=== PATIENT | male | born 1945 | race Caucasian/White ===

== ENCOUNTER 2022-07-11 07:56 | Day surgery (SDC) | payer OTHER ==
--- NOTE | 2022-07-06 10:58 | RAD REPORT ---
EXAM DESCRIPTION: RAD - Chest Pa And Lat (2 Views) - 07/06/2022 10:47 am CLINICAL HISTORY: Pre op pending bladder biopsy COMPARISON: CHEST PA AND LAT 2 VIEW dated 07/14/2008; Abdomen Pelvis W/Wo Contrast dated 06/09/2022 FINDINGS: Lines: None. Lungs: No evidence of edema or pneumonia. Large lung volumes and flattened hemidiaphragms could refle ct emphysema. Pleural: No significant pleural effusions or pneumothorax. Cardiac: Cardiomegaly. Bones: No acute fractures. Other: IMPRESSION: No acute cardiopulmonary disease.
[2022-07-06 11:12] LABS: Absolute Lymphocytes (CBC) 1.7 K/uL (0.7-4.9); Hematocrit 38.5 % (39.6-49.0); Lymphocytes % 18.7 % (15.3-44.8); MCV 84.1 fL (80-100); MPV 7.7 fL (7.6-11.3); RBC Red Blood Cell Count 4.58 M/uL (4.33-5.43)
[2022-07-06 11:13] LABS: Protime INR 1.05
[2022-07-06 11:23] LABS: Potassium 4.2 mmol/L (3.5-5.1)
[2022-07-06 12:34] LABS: SARS-CoV-2 Antigen Rapid Res Negative (Negative)
--- NOTE | 2022-07-06 14:27 | EKG ---
Test Date: 2022-07-06 Test Time: 10:30:33 [employer]: NABIL MEASUREMENT RESULTS: Intervals: Rate: 76 AK: 184 QRSD: 144 QT: 404 QTc: 454 [place]: P: 67 AK: 184 QRS: 95 T: 28 INTERPRETIVE STATEMENTS: Normal sinus rhythm Rightward axis Nonspecific intraventricular block Abnormal ECG No previous ECG available for comparison Electronically Signed On 07-06-22 14:26:55 CDT by Alonzo Douglass
[2022-07-11] MEDS ORDERED: Ringers Lactate 1,000 ML IV ONE (08:09)
[2022-07-11] MEDS ORDERED: CEFAZOLIN SODIUM 1 GM/VIAL ONE (08:10)
[2022-07-11] MEDS ORDERED: CEFAZOLIN 2 GM IN 0.9% NACL 2 GM/100 ML BAG ONE (08:20)
[2022-07-11] MEDS ORDERED: CEFAZOLIN SODIUM 1 GM/VIAL IVP ONE (10:58)
[2022-07-11] MEDS ORDERED: FENTANYL CITR 100 MCG/2 ML ONE ×2 (11:13→13:25)
[2022-07-11] MEDS ORDERED: LIDOCAINE 1% MPF 5 ML VIAL ONE (11:26)
[2022-07-11] MEDS ORDERED: propofoL 200 MG/20 ML VIAL IV ONE (11:26)
[2022-07-11] MEDS ORDERED: ROCURONIUM 50 MG/5 ML VIAL IV ONE (12:25)
[2022-07-11] MEDS ORDERED: HYDRALAZINE HCL 20 MG/ML VIAL ONE (12:26)
[2022-07-11] MEDS ORDERED: NEOSTIGMINE 1 MG/ML -10 ML VIAL ONE (12:43)
[2022-07-11] MEDS ORDERED: GLYCOPYRROLATE 0.2 MG/ML SYR ONE (12:43)
[2022-07-11] MEDS ORDERED: EPHEDRINE SULF 50 MG/ML VIAL ONE (12:47)
[2022-07-11] MEDS: HYDROMORPHONE HCL 1 MG/ML INJ ONE ×6 (13:07→13:42)
[2022-07-11] MEDS ORDERED: OPIUM/BELLADONNA SUPPOS (30-16.2 MG) PR ONE ×2 (13:08→13:17)
[2022-07-11] MEDS ORDERED: PHENAZOPYRIDINE 100MG TAB PO ONE (13:08)
[2022-07-11] MEDS ORDERED: CODEINE 30MG/APAP 300MG TAB PO PRN (13:09)
[2022-07-11] MEDS ORDERED: KETOROLAC 30 MG/ML INJ ONE (13:13)
[2022-07-11] MEDS ORDERED: FENTANYL CITR 250 MCG/5 ML ONE (13:50)
[2022-07-11] MEDS ORDERED: ONDANSETRON 4 MG/2 ML VIAL ONE (13:50)
[2022-07-11 15:59] VITALS: BP 165/95; TEMP 97
[2022-07-11 18:04] VITALS: O2SAT 98
--- NOTE | 2022-07-12 09:46 | OP ---
Surgeon: ANTONY NEWTON Preoperative Diagnoses: 1.Multifocal sessile and papillary bladder tumors. 2.Gross hematuria. Postoperative Diagnoses: 1.Multifocal sessile and papillary bladder tumors. 2.Gross hematuria. Procedures: 1.Cystoscopy with bladder biopsies. 2.Transurethral resection of a bladder tumor. 3.Extensive bladder irrigation and fulguration. Indication For Procedure: Mr. Case is a 77-year-old gentleman, who presented with BPH with lower urinary obstructive symptoms and gross hematuria, who underwent a cystoscopy revealing sessile papil kameron mucosal changes multifocally, consistent with bladder cancer. I explained the need for operativ e evaluation including biopsies and risks were discussed. He presents today for that management. Procedure In Detail: The patient was consented in the preoperative holding area before being transfe rred to the operative suite where general anesthesia was induced. He was given Ancef 2 g IV antimicr obial prophylaxis and Pneumoboots were provided for DVT prophylaxis. He was placed in the lithotomy position, padded and secured to the table appropriately, and his genitalia was prepped using Hibiclen s and draped in standard fashion. The case was begun using a 22-Swedish rigid cystoscope to traverse the urethra and into the bladder with ease. The bladder was surveyed, and as had previously been not ed on outpatient cystoscopic evaluation, there were multifocal areas of sessile mucosal change largel y involving the trigone, posteriorly, the dome, and the right lateral wall, with less involving the l eft lateral wall. Additionally, in the bladder neck, there were more papillary mucosal lesions consi stent with urothelial malignancy. As a result, I began by doing targeted biopsies of each of the abn ormal mucosal areas seen in the region of the trigone, posteriorly, the dome, as well as the right an d lateral wall. I then attempted to fulgurate each of these spaces, but because of ongoing oozing of blood in the region of the trigone, this made visualization of the ureteral orifices, which were alr linda extremely difficult to visualize due to significant inflammation in that region, even more diffi cult. As a result, I utilized an Ellik evacuator to remove clot that had formed in the region of the trigone and attempted to fulgurate using the Bugbee electrode without significant success. As a res ult, I utilized urethral sounds to dilate the meatus and fossa navicularis to 30-Swedish and then empl oyed the 26-Swedish resectoscope via his urethra into his bladder and irrigated out a small amount of clot within his bladder. I then performed a careful search for bleeding and noted that the majority of the bleeding was coming from the bladder neck and the region of the biopsy in the trigone. Attemp ts to fulgurate this were again made; however, the entirety of the mucosa surrounding the trigone and the ureteral orifices was inflamed and consistent with likely malignancy. These vessels were oozing and I was unable to fulgurate them in any great detail. As a result, I tried pinpoint capillary ful guration as much as possible to gain a significant degree of control before then resecting the area o f papillary tumor observed in the bladder neck posteriorly. This was sent for pathologic analysis. I then fulgurated those regions and there was adequate enough hemostasis in order to conclude the pro cedure without excessive undue risk to fulguration of the ureteral orifices, which was already my con cern. As a result, I removed the scope leaving the bladder full and placed a 22-Swedish 3-way Zhao c atheter into his bladder with ease. 30 cc of sterile water was placed in the balloon, and I irrigate d the catheter revealing only light pink urine. I thus connected the catheter to continuous bladder irrigation using normal saline and the returning efflux of fluid and urine was light pink to clear. As a result, the patient was taken out of the lithotomy position, awakened from general anesthesia, t ransferred to a stretcher, and then transferred to the recovery room in good condition. Complications: None immediately apparent. Discharge Disposition: He should follow up in the Urology Clinic in about 2 weeks' time to discuss t he results of the pathology and determine next steps, which I will likely recommend BCG given my stro ng suspicion for CIS. We additionally will monitor for any signs of flank pain, potentially indicati ve of an obstruction of the ureteral orifice from the fulguration and if necessary, obtain an ultrasound. WR/MODL Voice ID: [id number] Report ID: [id number]
== END 2022-07-11 17:58 | disposition home or self-care (01) ==
LOC: OR 07:56
PROVIDERS: ATTEND Urology
PROC: 3C1ZX8Z Irrigation of Indwelling Device using Irrigating Substance, External Approach (ICD-10-PCS; 2022-07-11)
PROC: 0TBB8ZX Excision of Bladder, Via Natural or Artificial Opening Endoscopic, Diagnostic (ICD-10-PCS; principal; 2022-07-11 09:30)
PROC: 0TBB8ZX Excision of Bladder, Via Natural or Artificial Opening Endoscopic, Diagnostic (ICD-10-PCS; 2022-07-11 09:30)
DX: C67.5 Malignant neoplasm of bladder neck (principal); R31.0 Gross hematuria; N40.1 Benign prostatic hyperplasia with lower urinary tract symptoms; Z20.822 Contact with and (suspected) exposure to COVID-19
CPT/HCPCS: 52204; 52234; 51700; 93005; 87088; 85025; 87086; 80048; 36415; 85610; 88305; 71046; 87811; J0360; J2704; J2710; J3010 ×2; J1170 ×3; J0690 ×2; J7120; J2405